=== PATIENT | female | born 1960 | race Caucasian/White ===

== ENCOUNTER 2017-06-09 10:53 | Observation (INO) | payer MEDICARE ==
[2017-06-09] MEDS: Phenytoin CAP(*) 100 MG CAP.ER PO SCH ×2 (13:20→21:46)
--- NOTE | 2017-06-09 15:40 | RAD ---
HISTORY: Seizure COMPARISONS: None TECHNIQUE: The following sequences were obtained of the head: Sagittal T1-weighted images, axial T2-weighted images, axial FLAIR images, axial susceptibility weighted images, axial T1-weighted images, coronal T1, T2 and FLAIR images through the mesial temporal lobes. Additionally, axial diffusion-weighted images were obtained with calculated apparent diffusion coefficients. FINDINGS: HEMORRHAGE/INFARCT: There is no hemorrhage or acute infarct. MASSES/SHIFT: There is no mass or shift. EXTRA-AXIAL SPACES/MENINGES: There are no extra-axial fluid collections. SULCI AND VENTRICLES: There is diffuse and proportional enlargement of the sulci and ventricles, with disproportionate enlargement of the cerebellar fissures. CEREBRUM: There are few, scattered small foci of elevated T2/STIR signal in the periventricular and subcortical white matter. Odd Shoe Examiner lesion is seen on the right parietal lobe measuring 0.3 cm in size.. The mesial temporal lobes are symmetric in size, architecture, and signal intensity. The collateral white matter bundles are symmetric. The mamillary bodies and temporal horns of the lateral ventricles are symmetric in size. There is no appreciable cortical dysplasia or heterotopia. BRAINSTEM: There are no focal parenchymal abnormalities. CEREBELLUM: As noted above, there is disproportionate volume loss of the cerebral hemispheres bilaterally. The cerebellar tonsils are normal in size and position. SELLA: The sella is normal. PINEAL: The pineal region is clear. CP ANGLE/TEMPORAL BONES: The labyrinthine structures are grossly normal. VESSELS: Normal flow-voids are noted within the visualized vertebral vasculature. DIFFUSION ABNORMALITIES: There are no diffusion abnormalities. PARANASAL SINUSES/MASTOIDS: The paranasal sinuses are clear. ORBITS: The orbits are unremarkable. BONES AND SOFT TISSUE: No bone or soft tissue abnormalities are noted. OTHER: None IMPRESSION: 1. DIFFUSE INVOLUTIONAL CHANGE, WITH DISPROPORTIONATE VOLUME LOSS OF THE CEREBELLUM, WHICH MAY REFLECT CHRONIC TOXIC/METABOLIC DISTURBANCE. 2. THE MESIAL TEMPORAL LOBES ARE SYMMETRIC. THERE IS NO APPRECIABLE CORTICAL DYSPLASIA OR HETEROTOPIA. 3. FEW, SCATTERED, SMALL FOCI OF ELEVATED T2/FLAIR SIGNAL WITHIN THE PERIVENTRICULAR AND SUBCORTICAL WHITE MATTER. WHILE THESE FINDINGS ARE NONSPECIFIC, THEY CAN BE SEEN IN ASSOCIATION WITH MIGRAINE HEADACHE, THE SEQUELA OF PREVIOUS INFECTION OR INFLAMMATION, AND CHRONIC SMALL VESSEL ISCHEMIA. DEMYELINATING DISEASE IS ALSO WITHIN THE DIFFERENTIAL, BUT IS CONSIDERED LESS LIKELY IN THE ABSENCE OF THE APPROPRIATE CLINICAL PRESENTATION. .
--- NOTE | 2017-06-09 15:47 | RAD ---
HISTORY: Seizures, difficulty walking COMPARISONS: None TECHNIQUE: The following sequences were obtained of the cervical spine: Sagittal T1- and T2-weighted images, sagittal STIR images, axial T2 and gradient echo images. FINDINGS: The study is limited by patient motion artifact. BRAIN AND SPINAL CORD: The visualized spinal cord is normal in caliber, position, and signal intensity. The visualized portion of the brain is unremarkable. The cerebellar tonsils are normal in position. ALIGNMENT: The alignment is normal. VERTEBRAL BODIES: There is anterolateral marginal osteophyte formation at C4-C5 and C5-C6 and C6-C7 with mild Modic type I reactive end plate changes. JOINTS: There is uncovertebral and facet osteoarthritis. MUSCULATURE: Unremarkable INTERVERTEBRAL DISCS: There is diffuse loss of intervertebral disc height and T2 signal throughout the spine. AXIAL IMAGES: C2-C3: There is no disc herniation, spinal stenosis, or neuroforaminal narrowing. C3-C4: There is bilateral uncovertebral hypertrophy. There is moderate bilateral neural foraminal narrowing. There is mild narrowing of the central canal. C4-C5: There is mild broad-based disc osteophyte complex with bilateral uncovertebral and shape. There is moderate bilateral neural foraminal narrowing. There is mild narrowing of the central canal. C5-C6: There is bilateral uncovertebral and facet hypertrophy. There is a broad-based discussed effect convex. There is moderate bilateral neural foraminal narrowing. There is mild narrowing of central canal. C6-C7: There is bilateral vertebral and facet hypertrophy. There is mild bilateral neural foraminal narrowing. There is no significant central stenosis. C7-T1: There is no disc herniation, spinal stenosis, or neuroforaminal narrowing. SOFT TISSUES: The visualized soft tissues of the neck are unremarkable. OTHER: None. IMPRESSION: 1. DEGENERATIVE DISC DISEASE AND OSTEOARTHRITIS. 2. THERE IS MILD NARROWING OF THE CENTRAL CANAL AT C3-C4, C4-C5, AND C5-C6. 3. THERE IS MULTILEVEL NEURAL FORAMINAL NARROWING DESCRIBED ABOVE.
[2017-06-09] MEDS ORDERED: Ondansetron TAB* 4 MG PO PRN (17:05)
[2017-06-09] MEDS ORDERED: Acetaminophen TAB* 325 MG PO PRN (17:05)
--- NOTE | 2017-06-09 20:42 | CONS ---
CONSULTATION REPORT: DATE OF CONSULT: 06/09/17 PATIENT OF: Dr. Monique and Dr. Key. HISTORY OF PRESENT ILLNESS: This is a 57-year-old woman, who is a longstanding patient of mine with known seizure disorder, who has been maintained on longstanding Depakote and Dilantin for her seizure disorder. She had a difficult- to-control seizure disorder years ago, but for many years, she has had no seizures. Because of osteoporosis and a low Dilantin level of 3, I have made a decision with her to stop the Dilantin, thinking that the Depakote was controlling her seizures sufficiently and that the Dilantin might be causing side effects, but no true benefit. Within 8 or 9 days of stopping the medicine , on 05/28/17, she fell backwards while getting out of the car, did not clearly strike her head and had no loss of consciousness; however, since then, she has had numerous symptoms. She has staring spells and her eyes can roll back and she can drool, she can talk to people who are not there. She talked to her daughter, who a couple of months ago. She has been shaky and weak. She cannot walk with falling and cannot get in and out of bed without help. She has also had some daily squeezing headaches since 05/28/17 fall. She is not confused and directly engages in conversations. She has had a few jerking episodes as well, they are brief, but occurring a couple of times a day. There is no clear depression according to her . She has seen a spine surgeon in [place], who found no significant findings apparently. MEDICATIONS: Include: 1. Depakote 500 three times a day plus 250 at night. 2. Omeprazole 20 mg daily. 3. She had been on Dilantin 100 mg pill at night and 50 twice a day, so for a total of 50 in the morning and 150 at night on a daily basis prior to discontinuing it. 4. She is on a variety of vitamins including calcium plus D 600/200 mg/units each day. SOCIAL HISTORY: She is otherwise in good health. She lives at home with her . She does not smoke or drink. REVIEW OF SYSTEMS: Otherwise negative, although she has had some mild chronic instability due to a mild idiopathic peripheral neuropathy, which is longstanding. PHYSICAL EXAM: Temperature 97.9, pulse 104, respiratory rate 18, blood pressure 123/70. She was alert and oriented with normal speech and comprehension. Cranial nerves II through XII are intact. [id number] was slightly hesitant, but intact. She could stand, but needed 1-person assist to walk to the bathroom. Strength is 5/5, although she is at baseline a frail woman. Reflexes were trace to 1, downgoing toes. Chest: Clear. Cardiovascular: Regular rate and rhythm. Abdomen: Soft with positive bowel sounds. DIAGNOSTIC STUDIES/LAB DATA: I reviewed her MRI scan of her brain, which showed diffuse atrophy and a few white matter spots. She also had a cervical MRI scan, which showed some degenerative disk disease and arthritis with no significant central cord disease with multi-level foraminal narrowing. Labs done yesterday as an outpatient included a peak Depakote of 111. Normal CMP other than albumin 2.6 with a normal CBC. IMPRESSION AND PLAN: I discussed with Ms. Kaminski, her , and Dr. Key , that I am not sure why there was this deterioration and significantly admitted her for testing and observation and to get her started back on the Dilantin. There are a few things that are possible that she could have had some change on MRI scan, which was not seen on MRI scan. There is no acute bleeding or stroke. She could have been having very frequent seizures. There are no seizures noted on an EEG, but if we are restarting the Dilantin, it is possible that she could be having intermittent seizures that are affecting her. We will just begin a load of 400 today, but then today go back to her old dose. However, if she is not better tomorrow, we may do a more prolonged EEG. It is possible I discussed with them that her symptoms could be due to postconcussion syndrome on her fall in somebody who is unsteady to start with, I am not sure what the staring spells or drooling are. It is possible that some of this relates to depression due to the of her daughter recently that may need to be pursued further that we need to acutely address the possible medical causes while keeping this rather in mind. [id number]/[facility] #: [id number] [facility]
[2017-06-09] MEDS ORDERED: Divalproex DR TAB(*) 250 MG PO SCH (21:00)
--- NOTE | 2017-06-09 21:32 | HP ---
CC: Dr. Michelle Montes * HISTORY AND PHYSICAL: DATE OF ADMISSION: 06/09/17 PROVIDER: Felisa Kinsey NP. ATTENDING PHYSICIAN WHILE IN THE HOSPITAL: Erlinda Vides MD * (dictated by Felisa Kinsey NP). CHIEF COMPLAINT: Seizures. HISTORY OF PRESENT ILLNESS: Ms. Haji is a 57-year-old female who carries a past medical history of seizures and low-back pain. She was seen at Dr. Monique's office from Neurology and was transferred to the hospital for evaluation of seizures. The patient reports that approximately 7 days ago she got out of her car and lost her balance as she got out of the car and was ambulating without her walker, which she normally uses. She reports that this was witnessed by her . She fell on her buttocks, on the ground. She denied any head injury or loss of consciousness. She reports that she felt okay after the fall and that her son picked her up, but over the past week she had increased jerking in her feet when she is sitting. She also reports that she is having difficulty ambulating with her walker. She reports that sometimes she is unable to stop when she is walking. She also reports that she has recently had a devastating loss of her daughter in February of this year. She reports that she has been upset and distressed about the of her daughter. She also reports that over the past week she has been calling for her who is not there. She has been reaching for stuff that is not been there. She reports that she is calling for her mother who is not there and these symptoms were concerning to her. Due to the symptoms that she was experiencing, Dr. Monique wanted her admitted for further evaluation. She was a direct admission today. PAST MEDICAL HISTORY: Significant for seizures. PAST SURGICAL HISTORY: She has had a lumbar back surgery. MEDICATIONS: Home medications include: 1. Calcium 600 mg p.o. at noon. 2. Calcium 1200 mg p.o. at 2100. 3. Flaxseed oil 1 cap b.i.d. 4. Fish oil 1000 mg capsule b.i.d. 5. Depakote 750 mg p.o. at 2100. 6. Depakote 500 mg p.o. at 12 p.m. 7. Depakote 500 mg p.o. at 8 a.m. 8. Omeprazole 20 mg p.o. daily. 9. Multivitamin 1 p.o. daily. 10. Vitamin B12 500 mcg p.o. daily. 11. Vitamin D3 1000 units p.o. daily. 12. Digestive Advantage, 1 cap p.o. daily. ALLERGIES TO MEDICATIONS: 1. PENICILLIN. 2. TEGRETOL. FAMILY HISTORY: Mother and grandfather both with MIs. Mother, sister, and father with hypertension. Cancer: Her father had lung cancer, daughter with spinal cancer. No diabetes is reported. SOCIAL HISTORY: She denies any alcohol or drug use. She denies any tobacco use. She reports that she is a full code. In the event she is unable to make her own medical decisions, her , Noé Haji, is her surrogate decision maker; his number is [phone]. REVIEW OF SYSTEMS: There is no documented fever. No significant weight change. There is no double vision. She does report a headache and a little bit of dizziness and some mild neck pain. She denies any rhinorrhea. Denies any sore throat. Denies any chest pain. Denies any shortness of breath or nocturnal dyspnea. There is no abdominal pain. No nausea, vomiting, or diarrhea. There is no dysuria or urinary frequency. She does report jerking episodes over the past week in her feet. She denies any loss of consciousness. No pruritus or skin ulcerations. A review of 14 systems was completed and all others are negative. PHYSICAL EXAMINATION GENERAL: At this time, Ms. Haji is a 57-year-old female who appears well and tearful, sitting on the bed. She does not appear to be in any acute distress. VITAL SIGNS: Temperature 97.8, pulse was 70, respirations 16, O2 saturation 99% , blood pressure 136/79. HEENT: Head is atraumatic, normocephalic. Eyes: EOMs are intact. Sclerae anicteric, not pale. Oral mucosa appear to be moist. There is no oropharyngeal erythema. She does have some mild left neck tenderness to palpation. NECK: Neck is supple. LUNGS: Clear to auscultation bilaterally. No wheezes, rales, or rhonchi. CARDIAC: S1, S2. Regular rate and rhythm. No murmurs, rubs, or gallops. ABDOMEN: Soft and nontender. Bowel sounds are present x4. EXTREMITIES: Pulses are +2 throughout. She is moving all extremities with 5/5 strength. NEUROLOGIC: She is awake, she is alert and oriented x3. She appears to be upset about the of her daughter. She does cry at times when talking about it. Her hand butcher are equal. Tongue is midline. Speech is clear. There are no focal deficits. SKIN: Intact. DIAGNOSTIC STUDIES AND LABORATORY DATA: None available. ASSESSMENT AND PLAN: Ms. Haji is a 57-year-old female who was a direct admission today after being at Dr. Monique's office for further evaluation of seizure activity. 1. Seizures: We will obtain an EEG. We will get an MRI of the brain and an MRI of the neck. She will also be placed on Dilantin 200 mg p.o. b.i.d. We will continue her Depakote 500 mg in the morning and at noon and 750 mg at night. 2. DVT prophylaxis: She can ambulate. 3. Code status: She is a full code. 4. Fluids, electrolytes, and nutrition: She can have a regular diet. TIME SPENT: Time spent on this admission was approximately 60 minutes, greater than half that time was spent [id number] with the patient obtaining her medical history, the other half of the time was spent going over the plan of care with the patient and implementing that plan of care. I have discussed this plan with my attending, Dr. Amanuel Key, and he is in agreement with my plan. FELISA KINSEY, SANJUANITA [id number]/[facility] #: [id number] [facility]ENTERDaylin
--- NOTE | 2017-06-09 22:15 | EEG ---
ELECTROENCEPHALOGRAPHY: DATE OF STUDY: 06/09/17 - ROOM #443 PATIENT OF: Dr. Monique and Dr. Key CLINICAL PROBLEM: This is a 57-year-old woman who has a known history of seizures. She has recently had some staring spells with some jerks. This study was done to rule out frequent seizures. MEDICATIONS: Include: 1. Depakote. 2. Dilantin. No other medicines are listed. REPORT: With the patient awake, background cerebral activity consists of moderate amplitude posterior dominant 8 to 9 Hz rhythm, which attenuates with eye opening and reappears with eye closure. With the patient drowsy, there is slowing to a theta range. This is briefly some admixed delta and theta activity. Muscle movement artifacts are noted at times. No epileptiform potentials, focal abnormalities, no major symmetries of background are present. CLINICAL IMPRESSION: This awake and briefly sleep EEG is within normal limits. [id number]/[facility] #: [id number] [facility]
[2017-06-10 05:48] LABS: ABS Basophils 0 10^3/ul (0-0.2); ABS Eosinophils 0 10^3/ul (0-0.6); ABS Lymphocytes 1.7 10^3/ul (1.0-4.8); ABS Neutrophils 2.1 10^3/ul (1.5-7.7); ABS Nucleated RBC 0 10^3/ul; Eosinophil % 0.1 % (0-6); Hematocrit 38 % (35-47); Hemoglobin 13.1 g/dl (12.0-16.0); Lymphocyte % 35.5 % (25-47); Mean Corpuscular HGB Conc 34 g/dl (31-36); Mean Corpuscular Hemoglobin 35 pg (27-31); Mean Corpuscular Volume 103 fL (80-97); Nucleated Red Blood Cells % 0; Platelet Count 102 10^3/ul (150-450); Red Blood Count 3.71 10^6/ul (4.0-5.4); Red Cell Distribution Width 14 % (10.5-15); White Blood Count 4.9 10^3/ul (3.5-10.8)
[2017-06-10 06:03] LABS: EGFR Non-African American 85.6 (>60)
[2017-06-10] MEDS ORDERED: Omeprazole CAP* 20 MG PO SCH (07:30)
[2017-06-10] MEDS ORDERED: Multivitamins/Minerals TAB PO SCH (08:00)
[2017-06-10] MEDS: Divalproex DR TAB(*) 500 MG PO SCH ×2 (08:27→12:24)
[2017-06-10] MEDS ORDERED: DEPAKOTE 500 MG PO SCH (12:00)
[2017-06-10] MEDS ORDERED: Phenytoin CHEW TAB(*) 50 MG PO SCH ×2 (14:00→21:00)
[2017-06-10 15:28] VITALS: BP 100/76
--- NOTE | 2017-06-10 16:28 | PN ---
NEUROLOGICAL FOLLOWUP NOTE: DATE OF SERVICE: 06/10/2017. PATIENT OF: Dr. Monique; Felisa Kinsey NP. HISTORY: This is a neurological followup of this 57-year-old woman, who is having balance problems, staring, jerking, and transient alteration of consciousness as well as possibly some hallucinations, has a history of depression. She has been restarted on her Dilantin. After a brief flow, she feels better today. She has not had any witnessed staring spells by either staff or her family. She has been more stable. She denies any severe depression, but she is still somewhat depressed. MEDICATIONS: Include: 1. Depakote 500, 500, 750. 2. Dilantin 50 in the morning, 150 at night. 3. Omeprazole. REVIEW OF SYSTEMS: Negative otherwise. PHYSICAL EXAMINATION: Temperature 98.5, pulse 73, respiratory rate 16, blood pressure 107/58. She is alert and oriented with normal speech and comprehension. She seems brighter and more interactive today. Motor exam revealed normal tone and strength. She is able to walk with a walker stably. She does not walk with the walker at home, but her balance is better today than yesterday. Chest: Clear. Cardiovascular: Regular rate and rhythm. Abdomen: Soft, positive bowel sounds. DIAGNOSTIC STUDIES: Her MRI scan of the brain, I reviewed yesterday and it showed some diffuse atrophy with some small vessel ischemic disease with cervical spine. It showed no cord compression and there was some multi-level neural foraminal narrowing. Her EEG was unremarkable. Her CBC today was normal as was her BMP. IMPRESSION AND PLAN: I discussed with the family and her that there was nothing on her brain or cervical MRI scan that is causing major acute problems that we are putting her back on her seizure medicine as was in her spells, but today her seizures are better now, some of this could be from depression. She also has some chronic neuropathy and imbalance, which could have been worse from the concussion. Physical Therapy is going to evaluate her now and since she is doing better, she can go home if she is stable enough per Physical Therapy. I will be seeing her back in a month and she can call the office sooner for problems. [id number]/[facility] #: [id number] [facility]
--- NOTE | 2017-06-11 00:26 | DS ---
CC: Dr. Monique; Dr. Kirby Montes* DISCHARGE SUMMARY: DATE OF ADMISSION: 06/09/17 DATE OF DISCHARGE: 06/10/17 PROVIDER: Felisa Kinsey NP ATTENDING PHYSICIAN: Erlinda Vides MD* (dictated by Felisa Kinsey NP). PRIMARY CARE PROVIDER: Dr. Kirby Montes in [place]. PRIMARY DIAGNOSES: 1. Possible intermittent seizures. 2. Possible underlying depression. SECONDARY DIAGNOSIS: Seizures. STUDIES COMPLETED WHILE IN THE HOSPITAL: She had an MRI of her brain on , radiologist's impression: 1. Diffuse involutional changes with disproportionate volume loss of the cerebellum which may reflect chronic toxic metabolic disturbance. 2. Mesial temporal lobes are asymmetric. There is no appreciable cortical dysplasia or heterotopia. 3. Few scattered small foci of elevated T2/FLAIR signal within the periventricular and subcortical white matter while these findings are nonspecific that could be seen in associated with migraine headaches as well as sequelae of previous infections or inflammation and chronic small vessel ischemia. Demyelinating disease is also within the differential, but is considered less likely in the absence of the appropriate clinical presentation. She had a CT of her cervical spine, radiologist's impression: 1. Degenerative disk disease and osteoarthritis. 2. Mild narrowing of the central canal at C3-4, C4-5, and C5-6. There is multilevel neural foraminal narrowing as described above. EEG on 06/09/17, clinical impression: Does awake and briefly sleepy. EEG is within normal limits. DISCHARGE MEDICATIONS: New home medications: Dilantin, she take 50 mg p.o. q.a.m. and 150 mg p.o. q.p.m. Continued home medications: 1. Calcium 600 mg p.o. 2. Flaxseed oil 1 tablet p.o. b.i.d. 3. Fish oil 1000 mg p.o. b.i.d. 4. Depakote 750 mg at night. 5. Depakote 500 mg in the a.m. and at 12 noon. 6. Omeprazole 20 mg p.o. a.m. 7. Multivitamin 1 tablet p.o. daily. 8. Vitamin B12 p.o. daily. 9. Digestive Advantage 1 cap p.o. daily. HISTORY OF PRESENT ILLNESS AND HOSPITAL COURSE: Ms. Haji is a 57-year-old female who carries a past medical history of seizures and low back pain. She was seen at Dr. Monique's office from Neurology and was transferred to the hospital for further evaluation of seizures. The patient reports that approximately 7 days ago she got out of the car and lost her balance as she got out of the car. She reports that the fall was witnessed by her . She reports that she fall on her buttocks on the ground and she did not lose any loss of consciousness. She denies any head injury. She states that she felt okay after the fall and that her son picked her up and she was able to ambulate. She reports over the past 7 days, she has had increased jerking in her feet when she is sitting. She also reports difficulty ambulating with her walker. She reports that sometimes she is unable to stop it when she is walking. She denies any recent illnesses. Denies any fever, chills, nausea, vomiting, or diarrhea. Denies any urinary frequency or urgency. She does report that she has been upset and distressed about the of her daughter. She also reports that over the past week that she has been calling for her who was not there. She has been reaching for stuff that is not there. She also reports calling for her mother who was not there and that these symptoms were concerning to her. Due to the symptoms that she was experiencing , Dr. Monique wanted her admitted for further evaluation, as she was a direct admit to the hospital. During her hospitalization, she was monitored for any seizure activity. She had an MRI of the brain and neck and also an EEG, which did not have any acute findings for stroke or masses. She also was consulted by Dr. Monique during this hospitalization. It is felt that she has improved after a loading dose of Dilantin and that this may be related to intermittent seizure activity. She did get an evaluation by physical therapy during this hospitalization. Physical therapy assessment: The patient demonstrates safe independent mobility with the rolling walker. Patient is noted to have tremors with all movements. Patient reports independent ambulation without a device, but demonstrates improved mobility with a rolling walker and she uses device at all times for mobility. Patient and family were extensively educated on this point. The patient may benefit from physial therapy as an outpatient basis to work on balance and mobility and then attempt to prove her overall ability. At this point, Ms. Haji is stable for discharge home. She will be discharged back home today. Ms. Haji is stable for discharge home. Vital signs are as follows: Blood pressure 100/76, temperature was 97.9, pulse was 82, respirations 16, O2 saturation was 99%. DISCHARGE PLAN: Ms. Haji will be discharged back home. Activity as tolerated. She should use a wheeled walker at all times when ambulating and transferring to steady her gait and assist with her mobility. She will also get a heavy referral to in-home physical therapy for further treatment and help with strength and mobility training procedures. She should continue her Depakote as previously prescribed. She was started on Dilantin. She will continue on Dilantin 50 mg in the morning and 150 mg at bedtime. She should have a repeat Dilantin level in 3 weeks prior to her followup appointment with Dr. Monique. As per her acid reflux, she should continue her omeprazole as previously prescribed. She may continue all of her previously prescribed vitamins. I suspect she may have some underlying depression related to the recent loss of her daughter. I would recommend that she followup outpatient with the therapist for counseling as this may assist her and coping mechanisms and dealing with the of her daughter. FOLLOWUP: She should follow up with her primary care provider in 4 to 7 days. She should follow up with Dr. Monique in 1 month. Prior to her appointment, she should have a repeat Dilantin level and script was provided for her. She was also provided with a script for in-home physical therapy. This is a summarization of her hospitalization. For further details, please see the entire medical record. TIME SPENT: Time spent on this discharge is approximately 60 minutes; greater than half that time was spent with the patient discussing discharge plans and instructions. CONDITION ON DISCHARGE: Stable. Discharge plan was discussed with my attending, Dr. Erlinda Vides and she is in agreement with my plan. FELISA KINSEY, SANJUANITA [id number]/[facility] #: [id number] [place]
== END 2017-06-10 17:20 | disposition home or self-care (01) ==
LOC: MEDTELE 10:53
PROVIDERS: ADMIT Internal Medicine; ATTEND Internal Medicine
DX: G40.909 Epilepsy, unspecified, not intractable, without status epilepticus (principal); M54.5 Low back pain; Z79.899 Other long term (current) drug therapy; Z88.8 Allergy status to other drugs, medicaments and biological substances; Z88.0 Allergy status to penicillin; M50.30 Other cervical disc degeneration, unspecified cervical region
CPT/HCPCS: 36415; 70551; 72141; 80048; 83735; 85025; 95819; A9270-GY; G0378; G8978-GP-CI; G8979-GP-CI; G8980-GP-CI